=== PATIENT | female | born 1965 | race Native Hawaiian/Other Pacific Islander ===

== ENCOUNTER 2016-10-21 06:25 | Day surgery (SDC) | payer BC ==
[2016-10-17 09:03] VITALS: BMI 38.7
--- NOTE | 2016-10-20 16:08 | P.GSHP ---
History of Present Illness H&P Date: 10/20/16 Chief Complaint: Incisional hernia This is a 51-year-old female who's developed an incisional hernia. Patient a previous transverse colectomy. She has developed an incisional hernia at the lower portion of her midline incision. She presents today for robotic-assisted laparoscopic repair of incisional hernia Past Medical History Additional Past Medical History / Comment(s): incisional hernia,post menopausal bleeding-had bx done due to thickening of uterine lining and poss lesion Sep 2016,:09/14/15: ABD PAIN ADMITTED BOWEL PERFORAMTION WITH ABSCESS. Hx Kidney stones x2,PM > 2 YRS History of Any Multi-Drug Resistant Organisms: None Reported Past Surgical History: Bowel Resection Additional Past Surgical History / Comment(s): COLONOSCOPY, LAPARASCOPIC COLECTOMY (TRANSVERSE COLON) Past Anesthesia/Blood Transfusion Reactions: No Reported Reaction Additional Past Anesthesia/Blood Transfusion Reaction / Comment(s): NEVER HAS HAD GENERAL ANESTHESIA Past Psychological History: No Psychological Hx Reported Smoking Status: Never smoker Past Alcohol Use History: None Reported Past Drug Use History: None Reported - Past Family History Mother Family Medical History: Asthma Additional Family Medical History / Comment(s): kidney stones, alive at 81 Father Additional Family Medical History / Comment(s): CABG,alive at age 88 Sister(s) Family Medical History: Cancer Additional Family Medical History / Comment(s): THYROID Medications and Allergies Home Medications Medication Instructions Recorded Confirmed Type Multivit-Min/Fe Fum/FA/Vit K 1 each PO DAILY 10/17/16 10/17/16 History [Women's Multivatimin] Allergies Allergy/AdvReac Type Severity Reaction Status Date / Time No Known Allergies Allergy Verified 10/17/16 08:41 Surgical - Exam - General well developed, no distress - Eyes PERRL - ENT normal pinna - Neck no masses - Respiratory normal expansion - Cardiovascular Rhythm: regular - Abdomen Midline incisional hernia. The hernia is reducible. Abdomen: soft, non tender Assessment and Plan Plan: Incisional hernia. We'll perform laparoscopic robotic-assisted repair of incisional hernia.
[~2016-10-21 06:25] MED LIST: DEXAMETHASONE SOD PHOSPHATE 10 MG/ML 1 ML VIAL IV ONE; HEPARIN SODIUM,PORCINE 5,000 UNIT/ML 1 ML VIAL SQ ONE; LACTATED RINGERS 1,000 ML IV SCH; MIDAZOLAM 2 MG/2 ML VIAL IV PRN; ONDANSETRON 4 MG/2 ML VIAL IVP ONE; SCOPOLAMINE 1.5MG/72HR PATCH TRANSDERM ONE; ceFAZolin 2 GM in SODIUM CHLORIDE 0.9% 100 ML IVPB ONE
[2016-10-21] MEDS ORDERED: LACTATED RINGERS 1,000 ML IV ONE (07:11)
[2016-10-21] MEDS ORDERED: KETOROLAC 30 MG/ML 1 ML VIAL ONE (07:53)
[2016-10-21] MEDS ORDERED: fentaNYL (PF) 50 MCG/ML 2 ML AMP ONE (07:53)
[2016-10-21] MEDS ORDERED: NEOSTIGMINE 1 MG/ML 10 ML VIAL ONE (07:53)
[2016-10-21] MEDS ORDERED: ROCURONIUM BROMIDE 10 MG/ML 10 ML VIAL IV ONE (07:53)
[2016-10-21] MEDS ORDERED: GLYCOPYRROLATE 0.2 MG/ML 2 ML VIAL ONE (07:53)
[2016-10-21] MEDS ORDERED: PROPOFOL 10 MG/ML 20 ML VIAL IV ONE (07:53)
[2016-10-21] MEDS ORDERED: MIDAZOLAM 2 MG/2 ML VIAL ONE (07:53)
[2016-10-21] MEDS ORDERED: SUCCINYLCHOLINE CHLORIDE 100 MG/5 ML SYR IV ONE (07:53)
[2016-10-21] MEDS ORDERED: PHENYLEPHRINE-0.9% NACL SYG 1 MG/10 ML SYRINGE ONE (07:53)
[2016-10-21] MEDS ORDERED: LIDOCAINE 1% INJ 10MG/ML (20 ML MDV) ONE (07:53)
[2016-10-21] MEDS ORDERED: BUPIVACAIN-EPI 0.25%-1:200,000 30 ML VIAL SQ ONE ×2 (08:22)
--- NOTE | 2016-10-21 09:22 | P.OP ---
Date of Procedure: 10/21/16 Preoperative Diagnosis: Incisional hernia Postoperative Diagnosis: Incisional hernia Adhesions Procedure(s) Performed: Laparoscopic robotic assistance repair of incisional hernia with mesh Lysis of adhesions Anesthesia: MADAI Surgeon: Jg Owusu Estimated Blood Loss (ml): 5 Condition: stable Disposition: PACU Description of Procedure: The patient's placed on the operating table in supine position. She received general anesthesia. Her abdomen was prepped and draped in usual sterile fashion. The skin incision sites were anesthetized 1% local Xylocaine. Using a 5 mm blade less trocar the pleural cavity was entered in the left upper quadrant. The abdomen insufflated and then a 8 mm robotic trochars placed in the left lower quadrant and a 12 mm trocar was placed in the left lateral position. The original 5 mm trocar was exchanged for an 8 mm robotic trocar. The fascial defect was visualized. The patient was undocked the robot. There were adhesions noted in the abdomen. These were lysed using hook cautery. The fascial defect was visualized. The fascial defect was then closed using OV lock suture. After the fascial repair a round ventral light ST mesh was secured using 20 strata fix suture. The patient was then undocked the robot. Next the needles were retrieved. And then the fascial defect of the 12 mm trocar site was closed using 0 Ethibond suture. Skin was closed interrupted 3- 0 Monocryl suture. Dermabond was applied. Patient was sent to recovery in stable condition..
[2016-10-21] MEDS: HYDROmorphone 1 MG/ML 1 ML SYRINGE IVP PRN ×4 (09:34→10:01)
[2016-10-21 09:49] VITALS: TEMP 98.8
[2016-10-21] MEDS ORDERED: HYDROcodone/APAP 7.5-325MG 1 EACH TAB PO ONE (11:05)
[2016-10-21 11:29] VITALS: RESP 16
[2016-10-21 11:54] VITALS: BP 125/69; PULSE 56
== END 2016-10-21 12:59 | disposition home or self-care (01) ==
LOC: OR 06:25
PROVIDERS: ATTEND Surgery
DX: K43.2 Incisional hernia without obstruction or gangrene (principal); K66.0 Peritoneal adhesions (postprocedural) (postinfection)
CPT/HCPCS: 86900; 86901; 86850; 49654; C1781; J2250; J1644; J1100; J2710; J0690; J2405; J2001; J3010; J1885; J1170; J2370; J0330; J2704

== ENCOUNTER 2016-12-12 06:54 | Day surgery (SDC) | payer BC ==
[2016-12-09 10:35] VITALS: BMI 36.9
[~2016-12-12 06:54] MED LIST changes: -DEXAMETHASONE SOD PHOSPHATE 10 MG/ML 1 ML VIAL IV ONE; -HEPARIN SODIUM,PORCINE 5,000 UNIT/ML 1 ML VIAL SQ ONE; -MIDAZOLAM 2 MG/2 ML VIAL IV PRN; -ONDANSETRON 4 MG/2 ML VIAL IVP ONE; -SCOPOLAMINE 1.5MG/72HR PATCH TRANSDERM ONE; -ceFAZolin 2 GM in SODIUM CHLORIDE 0.9% 100 ML IVPB ONE
[2016-12-12 07:07] VITALS: TEMP 98.6
[2016-12-12] MEDS ORDERED: LACTATED RINGERS 1,000 ML IV ONE (07:13)
[2016-12-12] MEDS ORDERED: PROPOFOL 10 MG/ML 20 ML VIAL IV ONE (07:42)
[2016-12-12] MEDS ORDERED: LIDOCAINE 1% INJ 10MG/ML (20 ML MDV) ONE (07:42)
--- NOTE | 2016-12-12 07:55 | P.GSHP ---
History of Present Illness H&P Date: 12/12/16 Chief Complaint: History of perforated diverticulitis This a 51-year-old female who has a history of perforated diverticulitis with abscess. Patient has undergone previous transverse colectomy. She presents today today for colonoscopy. - Constitutional Constitutional: Reports as per HPI Past Medical History Additional Past Medical History / Comment(s): post menopausal bleeding-had bx done due to thickening of uterine lining and poss lesion Sep 2016,ABD PAIN ADMITTED BOWEL PERFORAMTION WITH ABSCESS. Hx Kidney stones x2,PM > 2 YRS History of Any Multi-Drug Resistant Organisms: None Reported Past Surgical History: Bowel Resection, Hernia Repair Additional Past Surgical History / Comment(s): COLONOSCOPY, LAPARASCOPIC COLECTOMY (TRANSVERSE COLON) Past Anesthesia/Blood Transfusion Reactions: No Reported Reaction Additional Past Anesthesia/Blood Transfusion Reaction / Comment(s): NEVER HAS HAD GENERAL ANESTHESIA Past Psychological History: No Psychological Hx Reported Smoking Status: Never smoker Past Alcohol Use History: None Reported Past Drug Use History: None Reported - Past Family History Mother Family Medical History: Asthma Additional Family Medical History / Comment(s): kidney stones, alive at 81 Father Additional Family Medical History / Comment(s): CABG,alive at age 88 Sister(s) Family Medical History: Cancer Additional Family Medical History / Comment(s): THYROID Medications and Allergies Home Medications Medication Instructions Recorded Confirmed Type No Known Home Medications [No 12/09/16 12/12/16 History Known Home Medications] Allergies Allergy/AdvReac Type Severity Reaction Status Date / Time No Known Allergies Allergy Verified 12/09/16 10:30 Surgical - Exam Vital Signs Temp Pulse Resp BP Pulse Ox 98.6 F 99 18 137/79 97 12/12/16 07:06 12/12/16 07:06 12/12/16 07:06 12/12/16 07:06 12/12/16 07:06 - General well developed, no distress - Eyes PERRL - ENT normal pinna - Neck no masses - Respiratory normal expansion - Cardiovascular Rhythm: regular - Abdomen Abdomen: soft, non tender Assessment and Plan Plan: History of perforated diverticula this. We'll perform colonoscopy.
--- NOTE | 2016-12-12 08:03 | P.OP ---
Date of Procedure: 12/12/16 Preoperative Diagnosis: History of perforated diverticulitis Postoperative Diagnosis: Normal colon Procedure(s) Performed: Colonoscopy Anesthesia: MAC Surgeon: Jg Owusu Pathology: none sent Condition: stable Disposition: PACU Description of Procedure: PROCEDURE: The patient was placed on the endoscopy table in the lateral position. Digital rectal examination was performed which revealed no abnormalities. Flexible colonoscope was then placed in the patient's anus and passed throughout the entire colon. The ileocecal valve was visualized. The cecum, ascending, was normal. The patient had a previous partial transverse colectomy in the transverse colon appeared normal. The descending and sigmoid colon were normal. The rectum was normal as well. There were no masses, polyps seen in the colon. There is no evidence of any diverticular changes.
[2016-12-12 08:30] VITALS: BP 97/65; PULSE 75; RESP 18
== END 2016-12-12 08:53 | disposition home or self-care (01) ==
LOC: ORWHC2ENDO 06:54
PROVIDERS: ATTEND Surgery
DX: Z09 Encounter for follow-up examination after completed treatment for conditions other than malignant neoplasm (principal); Z90.49 Acquired absence of other specified parts of digestive tract
CPT/HCPCS: 45378; J2001; J2704

== ENCOUNTER → 2018-04-12 | Outpatient (CLI) | payer BC ==
--- NOTE | 2018-04-13 08:46 | MM ---
Reason for exam: screening (asymptomatic). Baseline mammogram. History: Patient is postmenopausal. Physical Findings: Nurse did not find any significant physical abnormalities on exam. MG Screening Mammo w CAD Bilateral CC and MLO view(s) were taken. There are scattered fibroglandular densities. No suspicious abnormality. These results were verbally communicated with the patient and result sheet given to the patient on 04/12/18. ASSESSMENT: Negative, BI-RAD 1 RECOMMENDATION: Routine screening mammogram of both breasts in 1 year.
== END | disposition home or self-care (01) ==
LOC: RADMAMWWP 15:30
PROVIDERS: ATTEND Family Medicine
DX: Z12.31 Encounter for screening mammogram for malignant neoplasm of breast (principal)
CPT/HCPCS: 77067